=== PATIENT | female | born 1970 | race Caucasian/White ===

== ENCOUNTER 2019-07-30 13:58 | Outpatient (CLI) | payer BC ==
--- NOTE | 2019-07-30 14:39 | RAD ---
2 view chest: [07/30/2019] Comparison:None available HISTORY: Chronic cough FINDINGS: Vague reticulonodular densities are suspected within the right upper lobe on the frontal vi ew. No lobar consolidation or alveolar edema. No pneumothorax or pleural fluid. Underlying pulmonary nodules within the right upper lobe or a possibility. IMPRESSION: Findings suspicious for infectious pneumonitis in the right upper lobe. Short-term follow -up imaging of the chest following treatment advised to document resolution. CODE T Code LN
== END 2019-07-30 13:59 | disposition home or self-care (01) ==
LOC: BURRAD 13:58
PROVIDERS: ATTEND Nurse Practitioner Family
DX: J18.9 Pneumonia, unspecified organism (principal)
CPT/HCPCS: 71046

== ENCOUNTER 2019-08-06 11:41 | Emergency (ER) | payer BC ==
[2019-08-06 12:18] LABS: #Basophils 0.1 thou/uL (0.0-0.2); #Lymphocytes 3.1 thou/uL (1.20-3.40); #Neutrophils 10.3 thou/uL (1.40-6.50); %Basophils 0.9 % (0.0-1.0); %Lymphocytes 21.2 % (21.0-51.0); %Monocytes 6.6 % (0.0-10.0); %Neutrophils 71.3 % (42.0-75.0); Hemoglobin 13.6 g/dL (12.0-16.0); Mean Corpuscular HGB CONC 32.8 g/dL (32.0-36.0); Mean Corpuscular Hemoglobin 29.5 pg (27.0-31.0); Mean Platelet Volume 6.1 fL (7.4-10.4); Platelet Count 371 thou/uL (130-400); RBC Distribution Width 12.1 % (11.5-14.5); White Blood Cell (WBC) Count 14.4 thou/uL (4.8-10.8)
[2019-08-06] MEDS ORDERED: Acetaminophen/Codeine 30-300mg Tablet ONE (12:22)
[2019-08-06 12:38] LABS: ALT (SGPT) 60 U/L (8-55); AST (SGOT) 44 U/L (5-34); Albumin 4.5 g/dL (3.5-5.0); Alkaline Phosphatase 113 U/L (40-110); Anion Gap 14 mmol/L (10-20); BUN (Urea Nitrogen) 16 mg/dL (7.0-18.7); Bilirubin, Total 0.4 mg/dL (0.2-1.2); Calc. Creatinine Clearance 0 mL/min (70-130); Carbon Dioxide 29 mmol/L (22-29); Chloride 101 mmol/L (98-107); Estimated GFR-MDRD 82; Globulin 3.6 g/dL (2.4-3.5); Glucose 84 mg/dL (70-105); Potassium 3.5 mmol/L (3.5-5.1); Protein, Total 8.1 g/dL (6.0-8.3); Sodium 140 mmol/L (136-145)
--- NOTE | 2019-08-06 20:54 | RAD ---
CHEST TWO VIEWS: 08/06/19 Comparison is made with a 07/30 study. Most of the haziness over the lower chest is due to the overlying breast tissue. While there is no ma sander lobar infiltrate, there is a little bit of streaking near the cardiac apex that may be slightly m ore prominent than on the 07/30 study. Because of this, I cannot exclude a minimal lingular infiltrate here. Otherwise, the lungs are clear. There are no effusions. The mediastinum appears normal and the trachea is midline. The bony structures are unremarkable. IMPRESSION: Possible small lingular infiltrate. POS: HOME
== END 2019-08-06 14:13 | disposition home or self-care (01) ==
LOC: BURERS 11:41
DX: J11.00 Influenza due to unidentified influenza virus with unspecified type of pneumonia (principal); G40.909 Epilepsy, unspecified, not intractable, without status epilepticus; F32.9 Major depressive disorder, single episode, unspecified; Z79.899 Other long term (current) drug therapy
CPT/HCPCS: 71046; 80053; 83880; 84484; 85025; 87040; 87804; 93005; 96360; J7620